=== PATIENT | female | born 1990 | race Caucasian/White ===

== ENCOUNTER 2020-01-18 18:16 | Observation (INO) | payer OTHER, SELFPAY ==
--- NOTE | ~2020-01-18 | NM_ITS ---
EXAMINATION: NM pulmonary perfusion DATE: 01/18/2020 22:16 INDICATION: Shortness of breath and pain on inspiration. Cough and fever. TECHNIQUE: 4.45 mCi Tc-99m MAA by intravenous route. Scintigraphic images of the chest were obtained . COMPARISON: Chest radiograph dated 01/18/2020 FINDINGS: There is relatively homogeneous perfusion throughout the lungs. No discrete ventilation and perfusio n mismatch is identified. IMPRESSION: 1. Low probability for pulmonary embolism. Reviewed, dictated and finalized at location H. TEGIC MARKETING ASSOCIATE
--- NOTE | ~2020-01-18 | XR_ITS ---
EXAMINATION: XR chest 1V portable DATE: 01/18/2020 20:25 INDICATION: Cough and fever and shortness of breath. Chest pain. TECHNIQUE: A single frontal view of the chest was obtained. COMPARISON: None. FINDINGS: The chest demonstrates clear lungs without pneumonia, pleural effusion, or pneumothorax. Th e heart size is normal. Surgical clips in the right upper quadrant are likely from cholecystectomy. IMPRESSION: 1. No acute cardiopulmonary disease. Reviewed, dictated and finalized at location A. SIGHT SPECIALIST
[2020-01-18 18:27] VITALS: BP 117/91; PULSE 96; RESP 20; TEMP 36.9; O2SAT 100
--- NOTE | 2020-01-18 18:31 | ED.SOB ---
HPI - SOB/Dyspnea General Chief Complaint: Shortness of Breath/Dyspnea Stated Complaint: sob Time Seen by Provider: 01/18/20 18:31 Source: patient Mode of arrival: ambulatory Limitations: no limitations History of Present Illness HPI Narrative: Patient is a 29 yo female with a history of possible SLE/RA, likely auto immune disease per patient, history of pleurisy, who presents for evaluation of cough, dyspnea and right sided chest pain. Patient states pain in her chest started after she was roomed in the ER, but that she has had pain intermittently for months. She does state that this pain worsened Wednesday. Pain is dull, aching in nature. Not associated with movement. Pt reports subjective fever yesterday. SHe did go to [facility] in [place] to be evaluated for chest pain, however patient states she had an EKG and UA done and was sent home. She states no other laboratory work was done at that point. Pt denies calf swelling or calf pain. Patient denies history of DVT. She does not smoke. She is on OCPs. She reports myalgias, rhinorrhea and congestion. She denies vomiting. No abdominal pain. Related Data Allergies Allergy/AdvReac Type Severity Reaction Status Date / Time ciprofloxacin [From Cipro] Allergy Rash Verified 01/18/20 18:31 iohexol Allergy Numbness Verified 01/18/20 18:31 [From contrast - CT, X-RAY] Sulfa (Sulfonamide Allergy Anaphylaxis Verified 01/18/20 18:31 Antibiotics) Review of Systems Review of Systems: Narrative: CONSTITUTIONAL: Reports subjective fever EYES: Denies visual changes, redness, or discharge. ENT: Denies rhinorrhea, congestion, sore throat, or otalgia. CARDIOVASCULAR: Reports right-sided chest pain RESPIRATORY: Reports dry cough and shortness of breath GASTROINTESTINAL: Denies abdominal pain, reports nausea GENITOURINARY: Denies dysuria or hematuria. SKIN: Denies rash or itching. MUSCULOSKELETAL: Denies back pain, joint pain, reports myalgias NEUROLOGIC: Denies headache, numbness, or weakness. [facility] Past Medical History Medical History (Updated 01/18/20 @ 22:16 by Mitch Lugo MD) Autoimmune disease Pleurisy Social History Social History (Updated 01/18/20 @ 20:40 by Mariana Kenney MD) Smoking status: Never smoker Alcohol intake: never Substance use: never Living arrangements: with family Gender identity (if verbalized by the patient): Female Exam Narrative: Exam Narrative: GENERAL: Awake, alert, conversant HEAD: Normocephalic, atraumatic. EYES: PERRLA and EOMI. ENT: Nares clear, no rhinorrhea or epistaxis. Mucous membranes moist. NECK: Supple. CHEST: No respiratory distress, breathing even and non labored, no chest wall tenderness HEART: Normal rate, 90, sinus rhythm ABDOMEN:Non distended, non tender EXTREMITIES: Normal range of motion. No edema. SKIN: Warm, dry, no rash. NEURO:No focal deficits. Alert and oriented x3 Course Vital Signs Vital signs: Vital Signs Temperature 36.9 C 01/18/20 18: Pulse Rate 96 01/18/20 18: Respiratory Rate 20 01/18/20 18:27 Blood Pressure 117/91 H 01/18/20 18:27 Pulse Oximetry 100 01/18/20 18:27 Temperature 36.9 C 01/18/20 18:27 Pulse Rate 92 01/18/20 21:31 Respiratory Rate 18 01/18/20 21:31 Blood Pressure 112/80 01/18/20 21:31 Pulse Oximetry 97 01/18/20 21:31 MDM - SOB/Dyspnea MDM Narrative Medical decision making narrative: Patient presented for evaluation of chest pain, shortness of breath. At the time of initial assessment, ABCs are intact and vital signs are stable. No increased work of breathing, no hypoxia on exam. No reproducible chest wall tenderness. Patient was given an aspirin. EKG without acute ischemic changes or evidence of right heart strain. Laboratory work-up with elevated troponin without elevated D-dimer. Given patient's history, I was concerned for possible diagnosis of myocarditis versus PE. Patient cannot have contrast study due to allergy, th
--- NOTE | 2020-01-18 18:42 | ECG_ITS ---
Measurements Intervals [place] Rate: 100 P: 62 AL: 139 QRS: -8 QRSD: 93 T: 25 QT: 348 QTc: 449 Interpretive Statements SINUS TACHYCARDIA BORDERLINE T WAVE ABNORMALITY- ANT/INF LEADS BORDERLINE ECG Electronically Signed On 01-19-2020 8:00:01 FEATHER WASHER by Karson Marks D.O.
[2020-01-18 19:53] VITALS: BP 112/80; PULSE 97; PULSE 98; RESP 13; O2SAT 98
[2020-01-18] MEDS: ONDANSETRON INJ 4 MG/2 ML VIAL IV PUSH (19:58)
[2020-01-18] MEDS: SODIUM CHLORIDE 0.9% IV 1,000 ML 999 ML IV CONT (19:58)
[2020-01-18 20:07] LABS: Basophils Percent Auto 0.4 % (0.2-1.2); Eosinophils Absolute Auto 0.2 K/mm3 (0-0.3); Eosinophils Percent Auto 2.8 % (0-4.4); Hematocrit 43.3 % (37.0-47.0); Immature Granulocyte Absolute 0.01 K/mm3 (0.00-0.031); Immature Granulocyte Percent A 0.1 % (0-0.5); Lymphocytes Absolute Auto 2.85 K/mm3 (0.9-3.2); Lymphocytes Percent Auto 38.2 % (18.3-44.2); Mean Corpuscular HGB Conc 34.6 g/dl (32-36); Mean Corpuscular Hemoglobin 31.6 pg (26-34); Mean Corpuscular Volume 91.4 fl (80-100); Mean Platelet Volume 10.5 fl (7.4-10.4); Monocytes Absolute Auto 0.4 K/mm3 (0.1-0.6); Monocytes Percent Auto 5.4 % (2.6-8.5); Neutrophils Percent Auto 53.1 % (45.5-73.1); Platelet Count Result 240 k/mm3 (150-375); Red Blood Count 4.74 M/mm3 (4.2-5.4); White Blood Count 7.5 K/mm3 (4.5-10.0)
[2020-01-18 20:17] LABS: INR 0.9; Prothrombin Time 12.6 Seconds (11.1-14.7)
[2020-01-18 20:18] LABS: Partial Thromboplastin Time 24.1 SECONDS (22.3-36.8)
[2020-01-18 20:19] LABS: Lactate Dehydrogenase 489 U/L (313-618)
[2020-01-18 20:20] VITALS: BMI 29.6
[2020-01-18 20:22] LABS: Add Urine Microscopic? NO; Appearance Urine Clear (Clear); Bilirubin Urine Negative (Negative); Blood Urine Negative (Negative); Color Urine Yellow (Yellow); Glucose Urine UA Negative (Negative); Ketones Urine Negative (Negative); Leukocyte Esterase Ur Negative LEU/UL (Negative); Nitrate Urine Negative (Negative); Protein Urine Negative (Negative); Specific Grav Ur 1.015 (1.001-1.035); Urobilinogen Urine Negative mg/dL (<2.0)
[2020-01-18 20:25] LABS: D Dimer 0.27 ug/mL (<0.48)
[2020-01-18] MEDS: HEPARIN SODIUM 5,000 UNITS/ML VIAL 5000 UNITS IV PUSH (21:20)
[2020-01-18] MEDS: predniSONE 10 MG TABLET 50 MG PO (21:21)
[2020-01-18] MEDS: ASPIRIN 81 MG CHEWABLE TABLET 324 MG PO (21:22)
[2020-01-18] MEDS: HEPARIN SOD/D5W 100 UNITS/ML 25,000 UNITS/250 ML BAG 12 UNITS IV CONT (21:27)
[2020-01-18 21:31] VITALS: BP 112/80; PULSE 92; RESP 18; O2SAT 97
[2020-01-18 21:58] LABS: Partial Thromboplastin Time 23.2 SECONDS (22.3-36.8)
--- NOTE | 2020-01-18 22:01 | PM.IMHP ---
H&P: HPI History of Present Illness Date/Time: 01/18/20 22:01 Chief complaint: Elevated troponin, chest pain, dyspnea Narrative: This is a pleasant 29-year-old female with a known history of a possible connective tissue disorder who is being worked up for possible lupus versus rheumatoid arthritis and presented to the hospital with a complaint of several months of midsternal chest discomfort which she describes as constant and unrelenting as well as worsening shortness of breath today. The patient does remark that she has had chronic shortness of breath which she attributes to pleurisy and normally is intermittent in nature. The patient has recently relocated to this area and does have an appointment with rheumatology this upcoming Wednesday. She reports that she had a fever yesterday and notice that she had significant exertional shortness of breath. She denies any lower extremity swelling, redness, or pain. The patient is only known to take oral contraceptive pills as well as Plaquenil. associated symptoms include body aches, joint aches, headache, and malaise. On further questioning she denies any nausea, vomiting, abdominal pain, dysuria, hematuria, diarrhea, rectal bleeding, or other focal neurological deficits. The patient was evaluated emergency room this evening and routine labs were virtually unremarkable with the exception of an elevated troponin of 1.260. EKG demonstrated sinus tachycardia with Q-waves in the anterior precordial leads otherwise no significant ST segment changes. Chest x-ray was unremarkable. The patient has allergy to contrast and will have V/Q scan to rule out acute pulmonary embolism. Cardiology, Dr. Muñoz has been consulted by ER provider and has asked that we admit the patient to the hospital for further care. She has no other complaints at this time. Review of Systems Review of Systems: All systems reviewed & are unremarkable except as noted in HPI and below PMFSH Past Medical History Medical History Autoimmune disease Pleurisy Social History Social History Smoking status: Never smoker Alcohol intake: never Substance use: never Substance use type: does not use Living arrangements: with family Gender identity (if verbalized by the patient): Female Spiritual care concerns: No Comments Family Medical history is reviewed and is unremarkable for connective tissue disease is or blood clotting disorders. Past surgical history is reviewed and noncontributory. Meds Home Medications and Allergies Allergies Allergy/AdvReac Type Severity Reaction Status Date / Time ciprofloxacin [From Cipro] Allergy Rash Verified 01/18/20 18:31 iohexol Allergy Numbness Verified 01/18/20 18:31 [From contrast - CT, X-RAY] Sulfa (Sulfonamide Allergy Anaphylaxis Verified 01/18/20 18:31 Antibiotics) Vital Signs Vital Signs - 24 hr 01/18/20 18:27 01/18/20 19:53 01/18/20 21:31 Temperature 36.9 C Pulse Rate 96 98 92 Respiratory Rate 20 13 18 Blood Pressure 117/91 H 112/80 112/80 Pulse Oximetry 100 98 97 Exam Const: General: cooperative, alert, awake, tired appearing and uncomfortable Nutritional Appearance: well nourished Orientation/consciousness: patient oriented x3 HENMT: Head: normal to inspection General nose exam: Normal external nose present Face and sinus: normal facial exam Mouth: Yes Normal oral and palatal mucosa present and Yes oropharynx normal Eyes: Pupils: Equal, round and reactive pupils present EOM: EOMs intact bilaterally Neck: Neck: supple and no JVD Thyroid: thyroid normal Lymphatic: lymphadenopathy not noted Resp: Effort & Inspection: normal respiratory effort Auscultation: clear to auscultation bilaterally Cardio: Rate: tachycardic Rhythm: regular rhythm Heart sounds: no murmurs GI: Inspection: normal to inspection Auscultatio
[2020-01-18 22:04] LABS: Alanine Aminotransferase 23 U/L (4-35); Albumin Level 4.3 g/dL (3.5-5.1); Alkaline Phosphatase 83 U/L (38-126); Anion Gap 8 mmol/L (8-16); Aspartate Amino Transferase 27 U/L (14-36); Bilirubin,Total 0.4 mg/dL (0.2-1.3); Blood Urea Nitrogen 12 mg/dL (7-17); CRP 0.8 mg/dL (<1.0); Calcium 9.6 mg/dL (8.4-10.2); Carbon Dioxide 26 mmol/L (22-30); Chloride 108 mmol/L (98-107); Estimated CRCL calculation 95 ml/min; Estimated Glomerular Filt Rate > 60; Glucose 88 mg/dL (65-105); Potassium 3.6 mmol/L (3.4-5.0); Sodium 142 mmol/L (137-145)
[2020-01-18 22:10] LABS: NT Pro B Type Natriuretic Pept 36 PG/ML (5-100)
[2020-01-18 22:25] VITALS: BP 112/74; PULSE 89; RESP 18; TEMP 37; O2SAT 100
[2020-01-18 22:30] VITALS: PULSE 92; RESP 18; O2SAT 97; BMI 30.9
--- NOTE | 2020-01-18 23:15 | ADMGEN ---
This patient, Pita Santo, was admitted to IMU Room 200-01 at 2225. Patient/family oriented to hospital policies and general routines including ID bracelet, bed and alarms, visiting hours, pain management, procedures, bathroom and other care routines, personal items, smoking policy, room service/diet, and visiting hours. Information on how to activate the Rapid Response Team has been discussed. Patient/Family are encouraged to report perceived risks to care and to ask questions if they do not understand what they are told or what they should do.
[2020-01-19] VITALS (11 sets, daily range): BP systolic 103–110; BP diastolic 63–71; PULSE 70–102; RESP 16–20; TEMP 36–37.4; O2SAT 97–100
--- NOTE | 2020-01-19 | ECHO_ITS ---
Patient Info Name: Pita Santo Age: 29 years : 1990 Gender: Female Ht: 64 in Wt: 179 lbs BSA: 1.94 m2 HR: 87 bpm BP: 109 / 71 mmHg Heart Rhythm: Sinus Rhythm Exam Date: 01/19/2020 10:51 AM Exam Location: [facility] Pulmonary Exam Room: 200 Patient Status: Inpatient Admit Date: 01/18/2020 Staff Ordering Physician: Mariana Kenney MD Finishing Supervisor: Michelle Olivo RDCS Attending Provider: Mitch Lugo MD Referring Physician: Anne Marie SIBLEY; Exam Type: CA echo doppler color flow Study Info Indications - elevated trops chest pain Complete two-dimensional, color flow and Doppler transthoracic echocardiogram is performed. Summary 1. Complete two-dimensional, color flow and Doppler transthoracic echocardiogram is performed. 2. Unremarkable 2D/Doppler echocardiogram. Left Ventricle Left ventricular chamber dimension is normal. Left ventricular systolic function is normal, estimated at 60-65%. The left ventricular diastolic function is normal. Right Ventricle Right ventricular chamber dimension is normal. Left Atria Left atrial chamber dimension is normal. Aortic Valve The aortic valve is normal. Pulmonic Valve The pulmonic valve is normal. Mitral Valve The mitral valve has normal leaflets. Tricuspid Valve The tricuspid valve leaflets are normal. Pericardium/Pleural The pericardium appears normal. Aorta The aortic root size at the sinus of Valsalva is normal. Left Ventricular Outflow Tract Name Value Normal LVOT 2D LVOT Diameter 2.0 cm LVOT Doppler LVOT Peak Gradient 4 mmHg LVOT Mean Gradient 2 mmHg LVOT VTI 21 cm LVOT VTI/AV VTI Ratio 1.0 LVOT Stroke Volume 64 ml LVOT CO 12.2 l/min LVOT CI 6.3 l/min/m2 Pulmonic Valve Name Value Normal PV Doppler PV Peak Gradient 3 mmHg Mitral Valve Name Value Normal MV Doppler MV Decel [place] 453 cm/s2 MV PHT 52 ms MV Area (PHT) 4.2 cm2 4.0-5.0 MV Diastolic Function MV E Peak Velocity 81 cm/s MV A Peak Velocity 60 cm/s MV E/A 1.3 MV Decel Time 179 ms Tricuspid Valve
[2020-01-19 01:46] LABS: Troponin I < 0.012 ng/mL (0.000-0.034)
[2020-01-19 05:33] LABS: Basophils Percent Auto 0.3 % (0.2-1.2); Eosinophils Percent Auto 0.2 % (0-4.4); Hematocrit 42.7 % (37.0-47.0); Hemoglobin 14.3 g/dL (12.0-15.0); Immature Granulocyte Absolute 0.02 K/mm3 (0.00-0.031); Immature Granulocyte Percent A 0.3 % (0-0.5); Lymphocytes Absolute Auto 0.88 K/mm3 (0.9-3.2); Lymphocytes Percent Auto 13.8 % (18.3-44.2); Mean Corpuscular HGB Conc 33.5 g/dl (32-36); Mean Corpuscular Hemoglobin 30.6 pg (26-34); Mean Corpuscular Volume 91.2 fl (80-100); Monocytes Absolute Auto 0.1 K/mm3 (0.1-0.6); Monocytes Percent Auto 0.8 % (2.6-8.5); Neutrophils Absolute Auto 5.4 K/mm3 (1.3-6.7); Neutrophils Percent Auto 84.6 % (45.5-73.1); Platelet Count Result 218 k/mm3 (150-375); Red Blood Count 4.68 M/mm3 (4.2-5.4); White Blood Count 6.4 K/mm3 (4.5-10.0)
[2020-01-19 05:42] LABS: Anion Gap 10 mmol/L (8-16); Blood Urea Nitrogen 10 mg/dL (7-17); Calcium 8.9 mg/dL (8.4-10.2); Carbon Dioxide 20 mmol/L (22-30); Chloride 111 mmol/L (98-107); Estimated CRCL calculation 107 ml/min; Estimated Glomerular Filt Rate > 60; Glucose 147 mg/dL (65-105); Potassium 4.2 mmol/L (3.4-5.0); Sodium 141 mmol/L (137-145)
[2020-01-19 05:43] LABS: Partial Thromboplastin Time 76.3 SECONDS (22.3-36.8)
[2020-01-19 05:56] LABS: Troponin I < 0.012 ng/mL (0.000-0.034)
--- NOTE | 2020-01-19 09:37 | PM.CNCAR ---
Assessment and Plan Additional Plan 29-year-old female with: Diffuse pain involving of multi articular arthritic pain for several months part of this illness has included some migratory chest pain as she describes in the history of present illness. She has been evaluated up at the [facility] and found to have evidence of a as yet undefined connective tissue disorder. She has an appointment next week to see a signals intelligence analysis manager for further evaluation of this. She came into the [facility] Emergency room last evening is the pain was a bit more problematic. Her troponin level was elevated and very curiously the 2nd 3rd samples are totally normal. In my opinion the elevated troponin has to be considered a laboratory error. I do not have any awareness of any cardiac pathology whether it be acute coronary syndrome or myocarditis which would result in a troponin elevation like this which disappears within 3 hours later. I am going to recommend stopping her intravenous heparin for this reason an echocardiogram has already been ordered because of these findings which of course has yet to be done this morning. If those results are unremarkable I believe she can be safely discharged and should follow up with her new signals intelligence analysis manager as scheduled early next week for ongoing workup of her connective tissue disorder. It looks like she is being ruled out for waddell virus because she did have a low-grade fever at home yesterday. Hopefully those results will be negative as well. Faisal Muñoz MD [facility] History of Present Illness History of Present Illness Consult date/time: 01/19/20 09:37 Consult reason: chest pain Reason For Visit: Elevated troponin, chest pain, dyspnea Narrative: This is a very pleasant 29-year-old lady I am seeing at the request of the hospitalist because of chest pain. She was admitted last ate last evening after being seen in the emergency department. She does not have any history of previous cardiac problems and has been having symptoms of feeling unwell for about 3 months or so. She was living in the [place] area until recently and has been seeking medical evaluation for symptoms of generalized pain in the joints including her small and large joints as well as some chest and abdominal discomfort. She was referred for subspecialty evaluation up in the [facility]. She states that she underwent a battery of tests up there which appear to show evidence of a connective tissue disease. They had yet to firm up that diagnosis but she was informed that there was evidence of an elevated BRISEYDA and other markers to show evidence of a connective tissue disorder. She did not have any information that she had any evidence of a cardiac problem of any kind. Part of her symptomatology includes chest pain which is a sharp chest pain that can be in different locations sometimes it is in the center of the substernal region sometimes it is to the right of the precordium sometimes it is to the left of the precordium. The discomfort seems to be there constantly and unremitting fashion for the last several months at times it gets worse and it did worsen yesterday and so she came to the emergency room. Because of this illness she states she is no longer able to work in moved from [place] to the [facility]. She was advised to follow-up with a signals intelligence analysis manager for further evaluation of her apparent a connective tissue disorder. She has an appointment to see a signals intelligence analysis manager at its [facility] in [place] Wednesday of this coming week. She was seen in the emergency room and found to have a normal looking electrocardiogram. The reason there was some concern about her cardiac status is her troponin level was elevated at 1.26 in the emergency room. Interestingly her 2nd and 3rd troponin levels are undetectable. Her 12 lead EKG once again is normal there is no evidence of ischemia injury and no findings worrisome for
[2020-01-19 11:33] LABS: Partial Thromboplastin Time 35.7 SECONDS (22.3-36.8)
[2020-01-19 13:18] LABS: Hemoglobin A1C 4.8 % (<5.7)
--- NOTE | 2020-01-19 15:01 | PM.DS ---
DS: Admitting Diagnosis Admitting Diagnosis Admitting Diagnosis: Elevated troponin, chest pain, dyspnea DS: Discharge Diagnosis Discharge Diagnosis (1) Chest pain: Qualifiers: Chest pain type: unspecified Qualified Code(s): R07.9 - Chest pain, unspecified Code(s): R07.9 - Chest pain, unspecified Status: Acute Assessment and Plan: Rule out myocarditis, pleurisy, costochondritis, acute coronary syndrome. patient will be admitted for observation to IMU. Telemetry. NPO. Trend troponin. Check another EKG. Nitroglycerin for any acute chest pain. Cardiology has been consulted by ER provider. The patient has been started on IV heparin per Cardiology. Continue Cardiology recommendations. (2) Elevated troponin: Code(s): R77.8 - Other specified abnormalities of plasma proteins Status: Acute Assessment and Plan: Trend troponin. (3) Autoimmune disease: Code(s): M35.9 - Systemic involvement of connective tissue, unspecified Status: Chronic Assessment and Plan: The patient did test positive for an BRISEYDA and likely has connective tissue disease given her history and symptoms. She she has an appointment with rheumatology this upcoming Wednesday to continue her workup. (4) Suspected 2019 novel coronavirus infection: Code(s): Z20.828 - Contact with and (suspected) exposure to other viral communicable diseases Status: Acute Assessment and Plan: droplet isolation. Covid-19 results pending. DS: Summary Hospital Course Reason for hospitalization: Chief complaint: Elevated troponin, chest pain, dyspnea Narrative: This is a pleasant 29-year-old female with a known history of a possible connective tissue disorder who is being worked up for possible lupus versus rheumatoid arthritis and presented to the hospital with a complaint of several months of midsternal chest discomfort which she describes as constant and unrelenting as well as worsening shortness of breath today. The patient does remark that she has had chronic shortness of breath which she attributes to pleurisy and normally is intermittent in nature. The patient has recently relocated to this area and does have an appointment with rheumatology this upcoming Wednesday. She reports that she had a fever yesterday and notice that she had significant exertional shortness of breath. She denies any lower extremity swelling, redness, or pain. The patient is only known to take oral contraceptive pills as well as Plaquenil. associated symptoms include body aches, joint aches, headache, and malaise. On further questioning she denies any nausea, vomiting, abdominal pain, dysuria, hematuria, diarrhea, rectal bleeding, or other focal neurological deficits. The patient was evaluated emergency room this evening and routine labs were virtually unremarkable with the exception of an elevated troponin of 1.260. EKG demonstrated sinus tachycardia with Q-waves in the anterior precordial leads otherwise no significant ST segment changes. Chest x-ray was unremarkable. The patient has allergy to contrast and will have V/Q scan to rule out acute pulmonary embolism. Cardiology, Dr. Muñoz has been consulted by ER provider and has asked that we admit the patient to the hospital for further care. She has no other complaints at this time. Hospital Course: Patient is a 29-year-old female presented with complaint of chest her initial tropes quite elevated 1.26 with remaining tropes were negative, was seen by Cardiology suspected most likely her symptoms stems from connective tissue disorder rather than coronary artery disease, echo was done to further evaluate which was essentially normal and patient also had V/Q scan which was negative for pulmonary emboli, patient clinically stable will discharge the patient home today. Status at Discharge Functional status at discharge: independent ambulation Overall status at discharge: denzel
== END 2020-01-19 20:10 | disposition home or self-care (01) ==
LOC: ANHED 21:31 → ANHIMU 01-19 15:01
PROVIDERS: Specialist; Admitting Provider Family Medicine; Emergency Provider Emergency Medicine; Visit Provider Family Medicine
DX: R07.9 Chest pain, unspecified (principal); R77.8 Other specified abnormalities of plasma proteins; M35.9 Systemic involvement of connective tissue, unspecified; Z20.828 Contact with and (suspected) exposure to other viral communicable diseases; R06.02 Shortness of breath; R05 Cough; M79.10 Myalgia, unspecified site; J34.89 Other specified disorders of nose and nasal sinuses; R68.89 Other general symptoms and signs; R09.1 Pleurisy
CPT/HCPCS: 36415; 71045; 78580; 80048; 80053; 81003; 83036; 83615; 83880; 84484; 85025; 85380; 85610; 85730; 86140; 87804; 93005; 93306; 96365; 96375; 99285; A9270; A9540; G0378; J0131; J1644; J2405; J7030; J7512

== ENCOUNTER 2020-03-11 06:16 | Emergency (ER) | payer OTHER, SELFPAY ==
[2020-03-11] VITALS (22 sets, daily range): BP systolic 100–140; BP diastolic 61–90; PULSE 82–101; RESP 10–21; TEMP 36.8; O2SAT 97–100
--- NOTE | ~2020-03-11 | CT_ITS ---
EXAMINATION: CT abdomen pelvis wo con DATE: 03/11/2020 08:07 INDICATION: Right-sided abdominal pain. Nausea. TECHNIQUE: Computed tomography (CT) of the abdomen and pelvis was performed without intravenous contr ast. Automated exposure control and iterative reconstruction technique were employed. The dose-length product was 660.23 mGy-cm. COMPARISON: None. FINDINGS: The visualized portions of the lung bases demonstrate a 5 mm groundglass nodule in right lo wer lobe, likely benign. No pleural effusion. The heart size is normal. No pericardial effusion. The liver and spleen are normal. There are changes of cholecystectomy. The pancreas and adrenal glands ar e normal. There is a 1 mm stone in right kidney. There is a 3 mm stone in left kidney. There are no d ilated loops of bowel. The appendix is normal. There are no pathologically enlarged lymph nodes. Ther e is no free intraperitoneal fluid. There is mild thoracolumbar spondylosis. IMPRESSION: 1. Small bilateral nonobstructing kidney stones. Reviewed, dictated and finalized at location B. IGERATOR TESTER
[2020-03-11 06:38] LABS: Basophils Absolute Auto 0.1 K/mm3 (0.0-0.1); Basophils Percent Auto 0.6 % (0.2-1.2); Eosinophils Absolute Auto 0.2 K/mm3 (0-0.3); Hematocrit 44.7 % (37.0-47.0); Hemoglobin 15.2 g/dL (12.0-15.0); Immature Granulocyte Absolute 0.03 K/mm3 (0.00-0.031); Immature Granulocyte Percent A 0.3 % (0-0.5); Lymphocytes Absolute Auto 3.58 K/mm3 (0.9-3.2); Lymphocytes Percent Auto 34.7 % (18.3-44.2); Mean Corpuscular Hemoglobin 31.2 pg (26-34); Mean Corpuscular Volume 91.8 fl (80-100); Mean Platelet Volume 11.3 fl (7.4-10.4); Monocytes Absolute Auto 0.4 K/mm3 (0.1-0.6); Monocytes Percent Auto 4.2 % (2.6-8.5); Neutrophils Percent Auto 58.2 % (45.5-73.1); Platelet Count Result 214 k/mm3 (150-375); Red Blood Count 4.87 M/mm3 (4.2-5.4); Red Cell Distribution Width 12.5 % (11.5-14.5); White Blood Count 10.3 K/mm3 (4.5-10.0)
[2020-03-11 06:44] LABS: Add Urine Microscopic? YES; Appearance Urine Clear (Clear); Bacteria Urine Trace /hpf; Bilirubin Urine Negative (Negative); Blood Urine Negative (Negative); Color Urine Yellow (Yellow); Glucose Urine UA Negative (Negative); Ketones Urine Negative (Negative); Leukocyte Esterase Ur 1+ LEU/UL (Negative); Mucus Urine Rare /lpf; Nitrate Urine Negative (Negative); Protein Urine 1+ mg/dL (Negative); RBC Urine 0-2 /hpf (0-2); Squamous Epithelial Cell Urine Many /hpf (Few); Urobilinogen Urine Negative mg/dL (<2.0)
[2020-03-11 06:53] LABS: Alanine Aminotransferase 20 U/L (4-35); Albumin Level 4.6 g/dL (3.5-5.1); Alkaline Phosphatase 73 U/L (38-126); Anion Gap 10 mmol/L (8-16); Aspartate Amino Transferase 33 U/L (14-36); Bilirubin,Total 0.6 mg/dL (0.2-1.3); Blood Urea Nitrogen 16 mg/dL (7-17); Calcium 9.9 mg/dL (8.4-10.2); Carbon Dioxide 22 mmol/L (22-30); Chloride 109 mmol/L (98-107); Estimated CRCL calculation 107 ml/min; Estimated Glomerular Filt Rate > 60; Glucose 109 mg/dL (65-105); Lipase 359 U/L (23-300); Potassium 4.4 mmol/L (3.4-5.0); Sodium 141 mmol/L (137-145)
[2020-03-11] MEDS: SODIUM CHLORIDE 0.9% IV 1,000 ML 999 ML IV CONT (07:22)
[2020-03-11] MEDS: MORPHINE SULFATE (*CRX) 4 MG/ML INJ IV PUSH (07:22)
[2020-03-11] MEDS: ONDANSETRON INJ 4 MG/2 ML VIAL IV PUSH (07:22)
--- NOTE | 2020-03-11 07:46 | PC.NURSE ---
called to room 14 for c/o midsternal chest pain. morphine iv was just given within las 1/2 hr. no sob and pain does not radiate. stat 12 [address] nsr[address] dr. vicente made aware of pt's c/o and symptoms.
--- NOTE | 2020-03-11 07:47 | ECG_ITS ---
Measurements Intervals [place] Rate: 86 P: 70 AR: 150 QRS: -1 QRSD: 84 T: 20 QT: 347 QTc: 417 Interpretive Statements SINUS RHYTHM BORDERLINE T WAVE ABNORMALITY- ANT/INF LEADS BORDERLINE ECG Electronically Signed On 03-11-2020 8:18:22 OPERATIONS INTERN by Karson Marks D.O.
--- NOTE | 2020-03-11 08:46 | PC.NURSE ---
pt now reports that midsternal chest pain is positional. worse when she sits up. vitals stable.
--- NOTE | 2020-03-11 09:53 | ED.ABDPAIN ---
HPI - Abdominal Pain General Chief Complaint: Abdominal Pain Stated Complaint: abd pain, loose stools, nausea Time Seen by Provider: 03/11/20 06:55 History of Present Illness HPI narrative: Patient is a 22-year-old female who presents the ER with upper abdominal pain. Symptoms began last night and is pressure-like. Radiates to the right back. No chest pain or shortness of breath or cough. Patient reports he has been having some loose stools over the last week. No blood in the stools. She has been having some mild nausea with this. No association with eating or drinking. Patient does not have a gallbladder. Patient denies urinary frequency/urgency/dysuria/blood in urine. Related Data Home Medications Medication Instructions Recorded Confirmed folic acid 03/11/20 hydroxychloroquine 03/11/20 meloxicam 03/11/20 methotrexate sodium 03/11/20 norethindrone acetate mg 03/11/20 Allergies Allergy/AdvReac Type Severity Reaction Status Date / Time ciprofloxacin [From Cipro] Allergy Rash Verified 03/11/20 06:27 iohexol Allergy Numbness Verified 03/11/20 06:27 [From contrast - CT, X-RAY] Sulfa (Sulfonamide Allergy Anaphylaxis Verified 03/11/20 06:27 Antibiotics) Review of Systems Review of Systems: All systems reviewed & are unremarkable except as noted in HPI and below Constitutional: Constitutional: Denies chills, Denies fever(s) and Denies weakness Gastrointestinal: Gastrointestinal: Reports abdominal pain, Reports diarrhea, Reports nausea and Denies vomiting Genitourinary: Genitourinary: Denies nocturia, Denies dysuria and Reports flank pain PMFSH Past Medical History Medical History (Updated 03/11/20 @ 09:56 by Juan Carlos Jonh MD) Autoimmune disease Pleurisy Psoriatic arthritis Surgical History Surgical History (Updated 03/11/20 @ 09:54 by Juan Carlos John MD) History of cholecystectomy Social History Social History Smoking status: Never smoker Alcohol intake: never Substance use: never Substance use type: does not use Gender identity (if verbalized by the patient): Female Spiritual care concerns: No Exam Narrative: Exam Narrative: GENERAL: Well-appearing, well-nourished, and in no acute distress. HEAD: Normocephalic, atraumatic. CHEST: Clear to auscultation. No respiratory distress. HEART: Regular rate and rhythm. Normal peripheral pulses. ABDOMEN: Soft, mild tenderness right upper quadrant without guarding, nondistended, normal active bowel sounds. EXTREMITIES: Normal range of motion. No edema. SKIN: Warm, dry, no rash. NEURO: Alert and oriented x3. PSYCH: Normal mood and affect. Course Course Emergency Course: Patient informed of results. More comfortable after morphine and Zofran. Unremarkable evaluation. Discharge home. Vital Signs Vital signs: Vital Signs Temperature 98.3 F 03/11/20 06:20 Pulse Rate 101 H 03/11/20 06:20 Respiratory Rate 20 03/11/20 06:20 Blood Pressure 140/90 03/11/20 06:20 Pulse Oximetry 100 03/11/20 06:20 Temperature 98.3 F 03/11/20 06:20 Pulse Rate 88 03/11/20 09:31 Respiratory Rate 16 03/11/20 09:31 Blood Pressure 102/64 03/11/20 09:31 Pulse Oximetry 100 03/11/20 09:31 MDM - Abdominal Pain Lab Data Result diagrams: 03/11/20 06:31 03/11/20 06:31 Labs: Lab Results 03/11/20 03/11/20 03/11/20 Range/Units 06:31 06:31 06:31 WBC 10.3 H (4.5-10.0) K/mm3 RBC 4.87 (4.2-5.4) M/mm3 Hgb 15.2 H (12.0-15.0) g/dL Hct 44.7 (37.0-47.0) % MCV 91.8 (80-100) fl MCH 31.2 (26-34) pg MCHC 34.0 (32-36) g/dl RDW 12.5 (11.5-14.5) % Plt Count 214 (150-375) k/mm3 MPV 11.3 H (7.4-10.4) fl Immature Gran % (Auto) 0.3 (0-0.5) % Neut % (Auto) 58.2 (45.5-73.1) % Lymph % (Auto) 34.7 (18.3-44.2) % [place] % (Auto) 4.2 (2.6-8.5) % Eos % (Auto) 2.0 (0-4
== END 2020-03-11 10:06 | disposition home or self-care (01) ==
PROVIDERS: Emergency Medicine; Emergency Provider Emergency Medicine
DX: R10.13 Epigastric pain (principal); L40.50 Arthropathic psoriasis, unspecified; D89.9 Disorder involving the immune mechanism, unspecified; N20.0 Calculus of kidney
CPT/HCPCS: 36415; 74176; 80053; 81001; 81025; 83690; 85025; 93005; 96361; 96374; 96375; 99284; J2270; J2405; J7030

== ENCOUNTER 2020-04-22 11:10 | Emergency (ER) | payer OTHER, SELFPAY ==
[2020-04-22] VITALS (37 sets, daily range): BP systolic 93–132; BP diastolic 60–96; PULSE 78–99; RESP 11–24; TEMP 37.2; O2SAT 95–100
--- NOTE | ~2020-04-22 | XR_ITS ---
EXAMINATION: XR chest 1V EXAM DATE: 04/22/2020 13:04 INDICATION: Chest pain. TECHNIQUE: Portable AP frontal chest x-ray was obtained. Comparison is made to prior examination from 01/18/2020. FINDINGS: The lungs are clear. There are no pleural effusions. The cardiomediastinal silhouette is within normal limits. There is no pneumothorax suspected. The bones and soft tissues are unremarkab le. There are cholecystectomy clips. IMPRESSION: Unremarkable chest x-ray exam. Reviewed, dictated and finalized at location A. RIDE OPERATOR
--- NOTE | ~2020-04-22 | CT_ITS ---
EXAMINATION: CT brain wo con DATE: 04/22/2020 13:01 INDICATION: Blurred vision. Generalized weakness. TECHNIQUE: Computed tomography (CT) of the head was performed without intravenous contrast. Sagittal and coronal reconstructions were performed. The mA was adjusted according to patient size. Iterative reconstruction technique was employed. The dose-length product was 605.33 mGy-cm. COMPARISON: None FINDINGS: No acute intracranial hemorrhage, acute infarction or abnormal extra axial fluid collection. Ventricl es are normal and symmetric. No mass/mass effect. The orbits, paranasal sinuses and mastoid air cells are normal. IMPRESSION: 1. Normal head CT. No acute intracranial process. Reviewed, dictated and finalized at location B. STRIAL CLEANING TECHNICIAN
--- NOTE | 2020-04-22 11:13 | ECG_ITS ---
Measurements Intervals [place] Rate: 91 P: 73 HI: 150 QRS: 16 QRSD: 83 T: 37 QT: 342 QTc: 422 Interpretive Statements SINUS RHYTHM DELAYED PRECORDIAL R/S TRANSITION BORDERLINE T WAVE ABNORMALITY- ANTERIOR LEADS BASELINE WANDER- V3-V5 BORDERLINE ECG Electronically Signed On 04-22-2020 12:19:05 RADIO SPORTSCASTER by Karson Marks D.O.
[2020-04-22 12:50] LABS: Basophils Percent Auto 0.6 % (0.2-1.2); Eosinophils Absolute Auto 0.1 K/mm3 (0-0.3); Eosinophils Percent Auto 1.4 % (0-4.4); Hematocrit 45.9 % (37.0-47.0); Hemoglobin 15.2 g/dL (12.0-15.0); Immature Granulocyte Absolute 0.01 K/mm3 (0.00-0.031); Immature Granulocyte Percent A 0.1 % (0-0.5); Lymphocytes Absolute Auto 2.28 K/mm3 (0.9-3.2); Lymphocytes Percent Auto 31.7 % (18.3-44.2); Mean Corpuscular HGB Conc 33.1 g/dl (32-36); Mean Corpuscular Hemoglobin 30.5 pg (26-34); Mean Corpuscular Volume 92.2 fl (80-100); Mean Platelet Volume 11.7 fl (7.4-10.4); Monocytes Absolute Auto 0.4 K/mm3 (0.1-0.6); Monocytes Percent Auto 4.9 % (2.6-8.5); Neutrophils Absolute Auto 4.4 K/mm3 (1.3-6.7); Neutrophils Percent Auto 61.3 % (45.5-73.1); Platelet Count Result 259 k/mm3 (150-375); Red Blood Count 4.98 M/mm3 (4.2-5.4); Red Cell Distribution Width 13.1 % (11.5-14.5); White Blood Count 7.2 K/mm3 (4.5-10.0)
--- NOTE | 2020-04-22 13:03 | ED.GENADULT ---
HPI - General Adult General Chief complaint: Unspecified Stated complaint: CP, vision changes x 2 weeks Time Seen by Provider: 04/22/20 12:27 Source: patient History of Present Illness HPI narrative: Patient is a 30 y/o female complaining of mid sternal chest pain for last 1-2 weeks. She describes her pain as a pressure and rates it as 8/10. She took Aspirin which helps with her pain sometimes. She has some pain radiation to left neck and shoulder. She also has some intermittent blurred vision. She has some numbness in her arms and legs, worse on the right. She states that she had an appointment with her PCP today and was referred to ED for evaluation. Related Data Home Medications Medication Instructions Recorded Confirmed folic acid 03/11/20 04/22/20 hydroxychloroquine 03/11/20 04/22/20 norethindrone acetate mg 03/11/20 04/22/20 methotrexate sodium 2.5 mg tablet 2.5 mg PO WEEKLY 04/22/20 04/22/20 Allergies Allergy/AdvReac Type Severity Reaction Status Date / Time ciprofloxacin [From Cipro] Allergy Rash Verified 04/22/20 10:15 iohexol Allergy Numbness Verified 04/22/20 10:15 [From contrast - CT, X-RAY] Sulfa (Sulfonamide Allergy Anaphylaxis Verified 04/22/20 10:15 Antibiotics) Review of Systems Constitutional: Constitutional: Denies chills, Denies fever(s), Denies headache(s) and Denies weakness Eyes: Eyes: Reports blurry vision ENT: Denies headache(s) and Denies neck pain Cardiovascular: Cardiovascular: Reports chest pain and Denies dyspnea Respiratory: Respiratory: Denies cough and Denies dyspnea Gastrointestinal: Gastrointestinal: Denies abdominal pain, Denies diarrhea, Denies nausea and Denies vomiting Genitourinary: Genitourinary: Denies hematuria and Denies dysuria Musculoskeletal: Musculoskeletal: Denies back pain and Denies neck pain Neurologic: Denies headache(s) and Denies weakness PMFSH Past Medical History Medical History Allergies Autoimmune disease Gallbladder disorder GERD (gastroesophageal reflux disease) IBS (irritable bowel syndrome) Migraine Pleurisy Psoriatic arthritis Seizure Surgical History Surgical History History of cholecystectomy 2010 History of endometrial ablation 2009, 2011, 2013 Family History Family History Father Alcohol abuse Mother Depression Sibling Depression Grandparent Hypertension Grandparent Heart disease Social History Social History Smoking status: Never smoker Alcohol intake: never Substance use: never Substance use type: does not use Gender identity (if verbalized by the patient): Female Spiritual care concerns: No Exam Const: General: no acute distress and well developed Orientation/consciousness: oriented to person, oriented to place, oriented to time and patient oriented x3 HENMT: Head: normocephalic Ears: external ears normal General nose exam: Normal external nose present Eyes: General: appearance normal, both eyes and all related structures Conjunctivae: conjunctivae normal Neck: Neck: normal visual inspection and full ROM Chest: Chest palpation & inspection: normal inspection of the chest and no tenderness Resp: Effort & Inspection: normal respiratory effort Auscultation: clear to auscultation bilaterally Cardio: Rate: regular rate Rhythm: regular rhythm GI: GI Palp: No abdominal tenderness and Yes Soft to palpation Skin: General skin exam: normal color and turgor normal Neuro: General: oriented to person, oriented to place, oriented to time and patient oriented x3 Cranial nerves: Yes CN's II-XII intact bilaterally Cognition (Neuro): normal cognition Speech: normal speech Motor exam (neuro): 5/5 motor strength present throughout Sensory Exam: normal sensation Coordination: fi
[2020-04-22 13:06] LABS: Alanine Aminotransferase 23 U/L (4-35); Albumin Level 4.5 g/dL (3.5-5.1); Alkaline Phosphatase 87 U/L (38-126); Anion Gap 9 mmol/L (8-16); Aspartate Amino Transferase 33 U/L (14-36); Bilirubin,Total 0.5 mg/dL (0.2-1.3); Blood Urea Nitrogen 11 mg/dL (7-17); Calcium 9.3 mg/dL (8.4-10.2); Carbon Dioxide 21 mmol/L (22-30); Chloride 112 mmol/L (98-107); Estimated CRCL calculation 107 ml/min; Estimated Glomerular Filt Rate > 60; Glucose 89 mg/dL (65-105); Potassium 4.3 mmol/L (3.4-5.0); Sodium 142 mmol/L (137-145)
[2020-04-22 13:16] LABS: Troponin I < 0.012 ng/mL (0.000-0.034)
[2020-04-22 14:12] LABS: Add Urine Microscopic? NO; Appearance Urine Clear (Clear); Bilirubin Urine Negative (Negative); Blood Urine Negative (Negative); Color Urine Straw (Yellow); Glucose Urine UA Negative (Negative); Ketones Urine Negative (Negative); Leukocyte Esterase Ur Negative LEU/UL (Negative); Nitrate Urine Negative (Negative); Protein Urine Negative (Negative); Specific Grav Ur 1.011 (1.001-1.035); Urobilinogen Urine Negative mg/dL (<2.0)
[2020-04-22 16:13] LABS: D Dimer 0.27 ug/mL (<0.48)
[2020-04-22 16:17] LABS: Troponin I < 0.012 ng/mL (0.000-0.034)
[2020-04-22 19:51] LABS: Troponin I < 0.012 ng/mL (0.000-0.034)
== END 2020-04-22 20:13 | disposition home or self-care (01) ==
PROVIDERS: Emergency Provider Emergency Medicine; PCP Nurse Practitioner
DX: R07.2 Precordial pain (principal); H53.8 Other visual disturbances; K21.9 Gastro-esophageal reflux disease without esophagitis; K58.9 Irritable bowel syndrome, unspecified; L40.50 Arthropathic psoriasis, unspecified; R94.31 Abnormal electrocardiogram [ECG] [EKG]
CPT/HCPCS: 36415; 70450; 71045; 80053; 81003; 81025; 84484; 85025; 85380; 93005; 99284

== ENCOUNTER 2020-07-19 20:36 | Emergency (ER) | payer OTHER, SELFPAY ==
[2020-07-19 20:42] VITALS: BP 117/83; PULSE 92; RESP 18; TEMP 36.3; O2SAT 100
--- NOTE | 2020-07-19 23:20 | PC.NURSE ---
called x 1 no answer.
--- NOTE | 2020-07-19 23:27 | PC.NURSE ---
called x 2 , no answer.
== END 2020-07-20 00:17 | disposition left against medical advice (07) ==
LOC: ANHED 07-20 00:11
PROVIDERS: Emergency Provider Emergency Medicine; PCP Nurse Practitioner
DX: R51.9 Headache, unspecified (principal)
CPT/HCPCS: 81025; 99199

== ENCOUNTER 2021-03-27 12:31 | Outpatient (CLI) | payer BC, SELFPAY ==
--- NOTE | ~2021-03-27 | CT_ITS ---
EXAMINATION: CTA chest PE protocol DATE: 03/27/2021 13:06 INDICATION: Chest pain and shortness of breath TECHNIQUE: Computed tomography (CT) pulmonary angiogram of the chest was performed with 100 mL Omnipa que-350 intravenous contrast. Additional 3D reconstructions utilizing coronal maximum intensity proje ction (MIP) were performed. Automated exposure control and iterative reconstruction technique were em ployed. The dose-length product was 305.38 mGy-cm. COMPARISON: None FINDINGS: Good contrast opacification of the pulmonary arteries. There is mild streak artifact from dense contr ast in the superior vena cava and right atrium. Minimal scattered respiratory motion artifact which d oes not significantly limit evaluation. No pulmonary embolism. No pneumonia, pulmonary edema, pleural effusion or pneumothorax. Normal variant azygos lobe and fissure. Heart size is normal. No pericardi al effusion. Thoracic aorta is normal in caliber with no dissection. No pathologically enlarged thora cic lymphadenopathy. Visualized upper abdomen is unremarkable. Mild likely physiologic anterior wedgi ng at T11. IMPRESSION: 1. No pulmonary embolism or other acute cardiopulmonary disease. Reviewed, dictated and finalized at location A. R RESOURCE CONSULTANT
== END 2021-03-27 12:32 | disposition home or self-care (01) ==
LOC: ANHIMG 12:37
PROVIDERS: PCP Internal Medicine; Visit Provider Nurse Practitioner
DX: R06.02 Shortness of breath (principal)
CPT/HCPCS: 71275; Q9967